=== PATIENT | male | born 2000 | race African-American/Black ===

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

== ENCOUNTER 2022-02-13 01:39 | Emergency (ER) | payer BC ==
[~2022-02-13] VITALS: Ht 188 cm; Wt 136.4 kg
[2022-02-13 01:43] VITALS: BP 175/125
[2022-02-13] MEDS ORDERED: HYDROcodone/acetaminophen 10/325mg tab PO STA (01:58)
[2022-02-13] MEDS ORDERED: HYDROcodone/acetaminophen 10/325mg tab PO ONE (03:15)
[2022-02-13] MEDS ORDERED: LIDOcaine 1% W/epiNEPHrine 1:100,000 20ml vial SQ ONE (03:15)
[2022-02-13] MEDS ORDERED: TETanus/Pertussis (Acell)/Diphther VAC/PF (Tdap-Adult) 0.5ml syringe IMVAC ONE (05:05)
== END 2022-02-13 05:22 | disposition home or self-care (01) ==
LOC: ER 01:39
DX: S01.311A Laceration without foreign body of right ear, initial encounter (principal); W18.30XA Fall on same level, unspecified, initial encounter; Y93.89 Activity, other specified; Y92.89 Other specified places as the place of occurrence of the external cause; Y99.8 Other external cause status
CPT/HCPCS: 12014; 99283; A6449

== ENCOUNTER 2022-02-25 13:01 | Emergency (ER) | payer BC ==
[~2022-02-25] VITALS: Ht 185.4 cm; Wt 145.4 kg
[2022-02-25 13:29] VITALS: BP 136/109
== END 2022-02-25 15:23 | disposition home or self-care (01) ==
LOC: ER 13:01
DX: S01.311D Laceration without foreign body of right ear, subsequent encounter (principal); Z48.00 Encounter for change or removal of nonsurgical wound dressing; X58.XXXD Exposure to other specified factors, subsequent encounter
CPT/HCPCS: 99281